=== PATIENT | male | born 1960 | race Caucasian/White ===

== ENCOUNTER → 2020-07-30 13:46 | Outpatient (BNVA) | payer OTHER, SELFPAY | PROVIDERS: Visit Provider Surgery | DX: Z20.822 Contact with and (suspected) exposure to COVID-19 (principal); Z12.11 Encounter for screening for malignant neoplasm of colon | CPT/HCPCS: 87635 ==

== ENCOUNTER 2020-08-04 05:45 | Day surgery (SDC) | payer OTHER, SELFPAY ==
[2020-08-01 15:43] VITALS: BMI 32.1
[2020-08-04 06:09] VITALS: BP 117/73; PULSE 63; RESP 18; TEMP 36.3; O2SAT 96
[2020-08-04] MEDS: sodium chloride 0.9% 1,000 ML 30 ML IV (06:17)
--- NOTE | 2020-08-04 06:48 | P.HP_ITS ---
Same Day Surgery H&P Indication for Procedure/HPI DATE OF PROCEDURE: August 04, 2020 CHIEF COMPLAINT/INDICATIONFOR SURGICAL PROCEDURE: screening PREOP DIAGNOSIS: screening colonoscopy PLANNED PROCEDRUE: Operation Date: 08/04/20 07:00 Proposed Procedures p Colonoscopy 30024 z12.11(Not Applicable) - Jonathan Villafuerte MD Medications/Allergies* Home Medications Medication Instructions Recorded Confirmed Type aspirin 81 mg tablet,delayed 81 mg PO DAILY 07/07/20 08/01/20 History release metoprolol succinate 50 mg 50 mg PO BID 07/07/20 08/04/20 History tablet,extended release 24 hr tamsulosin 0.4 mg capsule 0.4 mg PO DAILY 07/07/20 08/01/20 History terazosin 1 mg capsule 1 mg PO DAILY 07/07/20 08/01/20 History Allergies/Adverse Reactions Allergy/AdvReac Type Severity Reaction Status Date / Time No Known Allergies Allergy Verified 08/04/20 06:07 Current Medications: Generic Name Dose Route Start Last Admin Trade Name Freq PRN Reason Stop Dose Admin Sodium Chloride 1,000 mls @ 30 mls/hr 08/04/20 06:15 08/04/20 06:17 Sodium Chloride 0.9% IV 08/05/20 06:14 30 mls/hr .Q24H ABHI Administration Pertinent Exam Findings alert, oriented x 3 and regular rate & rhythm Recommendations Surgery/Procedure today Coding Level of Care Code Acute 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
--- NOTE | 2020-08-04 06:49 | ANES.PREANE2 ---
Pre-Anesthetic Assessment Pre-Anesthetic Assessment: Height/Weight: Height 1.88 m Weight 113.398 kg Temp Pulse Resp BP Pulse Ox 97.4 F L 63 18 117/73 96 08/04/20 06:09 08/04/20 06:09 08/04/20 06:09 08/04/20 06:09 08/04/20 06:09 Preop Diagnosis: screening colonoscopy Proposed Procedure: Operation Date: 08/04/20 07:00 Proposed Procedures p Colonoscopy 89723 z12.11(Not Applicable) - Jonathan Villafuerte MD Was Beta Dwayne taken within 24 hours: Yes Last intake: Intake Last Liquid Date 08/03/20 Last Liquid Time 23:00 Last Solid Date 08/02/20 Social: Social History: No alcohol and No tobacco Exam: Pre-Anes Outpt Exam: alert, oriented x 3, clear to auscultation bilaterally and regular rate & rhythm Airway: Submandibular: WNL Cervical ROM: WNL Additional comments: several missing History/ROS: No significant history except as noted and No significant complaints Pulmonary: Pulmonary: None reported CV/HEM: CV/HEM: HTN : : None reported Hepatic: Hepatic: None reported GI: GI: None reported Metabolic: Metabolic: None reported Musc/skel: Musc/skel: None reported Neuropsych: Neuropsych: None reported Anesthetic Plan: ASA status: 2 Anesthesia: Anesthesia Evaluation and MAC Risk of > 500 ml blood loss (7ml/kg in children): No Meds/Allergies Current Medications: Current Medications Generic Name Dose Route Start Last Admin Trade Name Freq PRN Reason Stop Dose Admin Sodium Chloride 1,000 mls @ 30 ml s/hr 08/04/20 06:15 08/04/20 06:17 Sodium Chloride 0.9% IV 08/05/20 06:14 30 mls/hr .Q24H ABHI Administration Data Anesthesia Cardiac Studies: No Data to Display
[2020-08-04 07:12] VITALS: BP 94/59; PULSE 62; RESP 16; TEMP 36.3; O2SAT 92
[2020-08-04 07:16] VITALS: O2SAT 94
[2020-08-04 07:27] VITALS: BP 111/66; PULSE 60; RESP 16; TEMP 36.4; O2SAT 98
--- NOTE | 2020-08-04 15:41 | ANE.PACU2 ---
Inpatient post-anesthesia follow up: Airway intact: Yes Vital signs: Temperature 97.6 F Pulse Rate 60 Respiratory Rate 16 Blood Pressure 111/66 Pulse Oximetry 98 Oxygen Delivery Me thod Room Air Oxygen Flow Rate 2 Fraction of Inspir ed Oxygen Hydration adequate: Yes Nausea and vomiting: No Pain level: 1 Mental status: Baseline
== END 2020-08-04 07:55 | disposition home or self-care (01) ==
PROVIDERS: Visit Provider Surgery
PROC: 0DJD8ZZ Inspection of Lower Intestinal Tract, Via Natural or Artificial Opening Endoscopic (ICD-10-PCS; CPT 45378; principal; 2020-08-04 07:00)
DX: Z12.11 Encounter for screening for malignant neoplasm of colon (principal); D12.0 Benign neoplasm of cecum; D12.4 Benign neoplasm of descending colon; K64.8 Other hemorrhoids; I10 Essential (primary) hypertension
CPT/HCPCS: 45380; 88305; 96360; J2704; J7030

== ENCOUNTER → 2021-03-31 09:45 | Outpatient (BNVA) | payer OTHER, SELFPAY | PROVIDERS: PCP Family Medicine; Visit Provider Nurse Practitioner Family | DX: Z20.822 Contact with and (suspected) exposure to COVID-19 (principal) | CPT/HCPCS: 87635 ==

== ENCOUNTER → 2022-01-08 07:50 | Outpatient (BNVA) | payer OTHER, SELFPAY | PROVIDERS: PCP Family Medicine; Visit Provider Family Medicine | DX: I10 Essential (primary) hypertension (principal) | CPT/HCPCS: 80048 ==

== ENCOUNTER → 2025-03-15 08:20 | Outpatient (BNVA) | payer OTHER, SELFPAY | PROVIDERS: PCP Family Medicine; Visit Provider Family Medicine | DX: I10 Essential (primary) hypertension (principal) | CPT/HCPCS: 80053; 80061; 84153; 85025 ==